=== PATIENT | male | born 1990 | race Caucasian/White ===

== ENCOUNTER 2016-08-29 08:46 | Emergency (ER) | payer BC ==
[2016-08-29] MEDS ORDERED: MOTRIN PO ONE (09:49)
--- NOTE | 2016-08-29 09:55 | Emergency Department Report ---
Entered by BLAZE ROBERTS, acting as scribe for RHIANNON ZAMBRANO NP. Chief Complaint: Urogenital-Male Stated Complaint: URINATING BLOOD/LIGHT HEADED Time Seen by Provider: 08/29/16 09:48 - HPI History of Present Illness: 26 y/o male, nontoxic, well developed, NAD, c/o abdominal pain beginning last night. Associated bloody urination, chills, diarrhea, and gradual onset throbbing CANTOR, non thunderclap. Denies, CP, SOB, blurry vision, n/v. - Exam Vital Signs: Vital Signs 08/29/16 09:24 Temperature 97.6 F Pulse Rate 50 L Respiratory 18 Rate Blood Pressure 139/102 O2 Sat by Pulse 100 Oximetry Physical Exam: GENERAL: The patient is a well-developed, well-nourished male in no apparent distress. Patient is alert and oriented x3. NEUROLOGIC: Cranial nerves II through XII are grossly intact. Alert and oriented x 3. Normal gait. Symmetrical strength and sensation. Reflexes 2+ throughout. Cerebellar testing normal. GCS score of 15. ABDOMEN: Soft, nontender, and nondistended. Positive bowel sounds. No hepatosplenomegaly was noted. No guarding or rebound tenderness, negative epigastric bruit. MSE screening note: Focused history and physical exam performed. Due to findings the following was ordered: CBC, UA, CMP. Patient received ibuprofen 600 mg in triage. ED Disposition for MSE Condition: Stable This documentation as recorded by the scribe,BLAZE ROBERTS,accurately reflects the service I personally performed and the decisions made by ,RHIANNON ZAMBRANO, PRO.
[2016-08-29 10:08] LABS: Basophils % (Auto) 0.5 % (0.0-1.8); Eosinophils % (Auto) 4.7 % (0.0-4.3); Hematocrit 46.1 % (35.5-45.6); Hemoglobin 15.5 gm/dl (11.8-15.2); Mean Corpuscular HGB Conc 34 % (32-34); Mean Corpuscular Hemoglobin 28 pg (28-32); Mean Corpuscular Volume 82 fl (84-94); Platelet Count 268 K/mm3 (140-440); Red Blood Count 5.63 M/mm3 (3.65-5.03); Red Cell Distribution Width 14.3 % (13.2-15.2); White Blood Count 6.9 K/mm3 (4.5-11.0)
[2016-08-29 10:27] LABS: Alanine Aminotransferase 16 units/L (7-56); Albumin 4.2 g/dL (3.9-5); Albumin/Globulin Ratio 1.4 %; Alkaline Phosphatase 58 units/L (35-129); Anion Gap 18 mmol/L; BUN/Creatinine Ratio 15.55; Blood Urea Nitrogen 14 mg/dL (9-20); Carbon Dioxide 24 mmol/L (22-30); Chloride 99.7 mmol/L (98-107); Glucose 104 mg/dL (75-100); Potassium 3.8 mmol/L (3.6-5.0); Sodium 138 mmol/L (137-145); Total Protein 7.3 g/dL (6.3-8.2)
[2016-08-29 14:54] LABS: Bacteria,Urine 1+ /HPF (Negative); Bilirubin,Urine NEG (Negative); Blood,Urine SM (Negative); Ketones,Urine TR mg/dL (Negative); Leukocyte Esterase,Urine TR (Negative); Mucus,Urine 3+ /HPF; Nitrite,Urine NEG (Negative)
[2016-08-29] MEDS ORDERED: ZOFRAN ODT PO ONE (18:40)
[2016-08-29] MEDS ORDERED: NORCO 5/325 PO ONE (18:40)
--- NOTE | 2016-08-29 19:42 | Cat Scan Report ---
FINAL REPORT PROCEDURE: CT ABDOMEN PELVIS WO CON TECHNIQUE: Computerized axial tomography of the abdomen and pelvis was performed without intravenous contrast. This study is performed without intravascular contrast material and its sensitivity for abdominal and pelvic pathology, including neoplasms, inflammation, abscess, free fluid, thrombosis, arterial dissection and infarction, is reduced compared with a contrast enhanced study. HISTORY: hematuria, renal colic 1st episode COMPARISON: No prior studies are available for comparison. FINDINGS: The liver and spleen appear normal. The gallbladder and pancreas display no abnormalities. The adrenal glands and abdominal aorta are normal in size. No renal abnormality is seen. Normal appendix is seen. Bladder appears normal. Prostate gland is normal in size. No free pelvic fluid is seen. Likely mild changes of jejunitis or enteritis are seen. IMPRESSION: No renal or ureteral abnormalities are seen. Likely changes of jejunitis or enteritis are seen.
--- NOTE | 2016-08-29 20:45 | Emergency Department Report ---
ED Back Pain/Injury HPI - General Chief Complaint: Urogenital-Male Stated Complaint: URINATING BLOOD/LIGHT HEADED Time Seen by Provider: 08/29/16 09:48 Source: patient Limitations: No Limitations - History of Present Illness Initial Comments: 26M PMH HTN p/w c/o several episodes of hematuria over the last week. pt states he was in ED at [place] yesterday, had labs done but eloped because he had to no one to attend to his children. Pt is AAOx3, appears slightly uncomfortable. States he had mild nausea yesterday but none now. Denies any fever or chills, + slightly increased urinary frequency. pt states that he passed a small clot in urine yesterday which pt states may have contained a small stone. pain radiating from b/l flanks down to groin. denies any testicular pain or swelling. Denies any trauma to back. C/o mild headache. MD Complaint: back pain Onset/Timin -: week(s) Similar Symptoms Previously: No Severity scale (0 -10): 6 Quality: sharp - Related Data Previous Rx's Medication Instructions Recorded Last Taken Type Starch 51%(Nf) [Anusol] 1 each GA BID PRN #20 supp.rect 02/11/13 Unknown Rx Acetaminophen/Codeine [Tylenol 1 tab PO Q6H PRN #10 tab 08/29/16 Unknown Rx /Codeine # 3 tab] Ciprofloxacin HCl [Ciprofloxacin 500 mg PO Q12H #14 tab 08/29/16 Unknown Rx TAB] Naproxen [Naprosyn TAB] 500 mg PO BID PRN #30 tablet 08/29/16 Unknown Rx Ondansetron [Zofran Odt] 4 mg PO Q8H PRN #10 tab.rapdis 08/29/16 Unknown Rx Allergies Allergy/AdvReac Type Severity Reaction Status Date / Time No Known Allergies Allergy Unverified 02/11/13 07:43 ED Review of Systems ROS: Stated complaint: URINATING BLOOD/LIGHT HEADED Other details as noted in HPI Constitutional: denies: chills, fever Eyes: denies: eye pain, eye discharge, vision change ENT: denies: ear pain, throat pain Respiratory: denies: cough, shortness of breath, wheezing Cardiovascular: denies: chest pain, palpitations Endocrine: no symptoms reported Gastrointestinal: denies: abdominal pain, nausea, diarrhea Genitourinary: dysuria, hematuria. denies: urgency Musculoskeletal: denies: back pain, joint swelling, arthralgia Skin: denies: rash, lesions Neurological: headache. denies: weakness, paresthesias Psychiatric: denies: anxiety, depression Hematological/Lymphatic: denies: easy bleeding, easy bruising ED Past Medical Hx - Past Medical History Previous Medical History?: Yes Additional medical history: hematuria - Surgical History Past Surgical History?: No - Social History Smoking Status: Current Every Day Smoker Substance Use Type: Alcohol, Marijuana, Prescribed - Medications Home Medications: Home Medications Medication Instructions Recorded Confirmed Last Taken Type Starch 51%(Nf) [Anusol] 1 each GA BID PRN #20 supp.rect 02/11/13 Unknown Rx Acetaminophen/Codeine [Tylenol 1 tab PO Q6H PRN #10 tab 08/29/16 Unknown Rx /Codeine # 3 tab] Ciprofloxacin HCl [Ciprofloxacin 500 mg PO Q12H #14 tab 08/29/16 Unknown Rx TAB] Naproxen [Naprosyn TAB] 500 mg PO BID PRN #30 tablet 08/29/16 Unknown Rx Ondansetron [Zofran Odt] 4 mg PO Q8H PRN #10 tab.rapdis 08/29/16 Unknown Rx ED Physical Exam - General Limitations: No Limitations General appearance: alert, in no apparent distress - Head Head exam: Present: atraumatic, normocephalic - Eye Eye exam: Present: normal appearance, PERRL, EOMI - ENT ENT exam: Present: mucous membranes moist - Neck Neck exam: Present: normal inspection - Respiratory Respiratory exam: Present: normal lung sounds bilaterally. Absent: respiratory distress - Cardiovascular Cardiovascular Exam: Present: regular rate, normal rhythm. Absent: systolic murmur, diastolic murmur, rubs, gallop - GI/Abdominal GI/Abdominal exam: Present: soft (no tednerness x4 quds, no tenderness mcburneys point, negative rovsgins sign), normal bowel sounds - Rectal Rectal exam: Present: deferred - Extremities Exam Extremities exam: Present: normal inspection - Back Exam Back exam: Present: normal inspection, full ROM, CVA tenderness (R) (mild left and right side cva pain), CVA tenderness (L) - Neurological Exam Neurological exam: Present: alert, oriented X3, CN II-XII intact, normal gait - Psychiatric Psychiatric exam: Present: normal affect, normal mood - Skin Skin exam: Present: warm, dry, intact, normal color. Absent: rash ED Course Vital Signs 08/29/16 08/29/16 09:24 21:26 Temperature 97.6 F 97.6 F Pulse Rate 50 L 58 L Respiratory 18 20 Rate Blood Pressure 139/102 Blood Pressure 109/64 [Left] O2 Sat by Pulse 100 98 Oximetry ED Medical Decision Making - Lab Data Result diagrams: 08/29/16 09:55 08/29/16 09:55 - Medical Decision Making A/P: Renal colic 1-CT shows no obstructing stone or stone and ureter patient likely recently passed a kidney stone 2-approximately when necessary, Tylenol No. 3 short course when necessary. patient has no complaints of headache or dizziness before discharge 3-patient follow up with primary care doctor 4-CT otherwise unremarkable 5- patient does have leukocytes in urine and did mention mild suprapubic discomfort armen treat empirically with ciprofloxacin 6- advised patient to remain well-hydrated to return to the ED for any fevers chills nausea vomiting Critical care attestation.: If time is entered above; I have spent that time in minutes in the direct care of this critically ill patient, excluding procedure time. ED Disposition Clinical Impression: Renal colic Disposition: DISCHARGED TO HOME OR SELFCARE Is pt being admited?: No Does the pt Need Aspirin: No Condition: Stable Instructions: Renal Colic (ED), Acute Hematuria (ED) Prescriptions: Acetaminophen/Codeine [Tylenol /Codeine # 3 tab] 1 tab PO Q6H PRN #10 tab PRN Reason: Pain , Severe (7-10) Ciprofloxacin HCl [Ciprofloxacin TAB] 500 mg PO Q12H #14 tab Naproxen [Naprosyn TAB] 500 mg PO BID PRN #30 tablet PRN Reason: Pain Ondansetron [Zofran Odt] 4 mg PO Q8H PRN #10 tab.rapdis PRN Reason: Nausea Referrals: [facility] [Provider Group] - 3-5 Days [facility] [Outside] - 3-5 Days DMITRIY COFFMAN MD [Staff Physician] - 3-5 Days Forms: Work/School Release Form(ED)
[2016-08-29 21:26] VITALS: BP 109/64
== END 2016-08-29 21:28 | disposition home or self-care (01) ==
LOC: ED 08:46
DX: N23 Unspecified renal colic (principal); F17.200 Nicotine dependence, unspecified, uncomplicated; F12.10 Cannabis abuse, uncomplicated
CPT/HCPCS: 36415; 74176; 80053; 81001; 85025; Q0162

== ENCOUNTER 2017-02-28 11:47 | Day surgery (SDC) | payer OTHER ==
--- NOTE | 2017-02-28 12:06 | Anesthesia Day of Surgery ---
Anesthesia Day of Surgery - Day of Surgery Patient Examined: Yes Patient H&P Reviewed: Yes Patient is NPO: Yes
--- NOTE | 2017-02-28 12:06 | Anesthesia Consultation ---
Anesthesia Consult and Med Hx Date of service: 02/28/17 - Airway Anesthetic Teeth Evaluation: Good ROM Head & Neck: Adequate Mental/Hyoid Distance: Adequate Mallampati Class: Class II Intubation Access Assessment: Probably Good - Pulmonary Exam CTA: Yes - Cardiac Exam Cardiac Exam: RRR - Pre-Operative Health Status ASA Pre-Surgery Classification: ASA2 Proposed Anesthetic Plan: General - Pre-Anesthesia Comment Pre-Anesthesia Comments: one rear tooth broken - Pulmonary Hx Smoking: Yes (1/2 p/day x 6 years) Hx Sleep Apnea: No (snoring) - Other Systems Hx Obesity: Yes
[2017-02-28] MEDS ORDERED: PERCOCET 5/325 PO PRN (12:07)
[2017-02-28] MEDS ORDERED: ZOFRAN IV PRN (12:07)
[2017-02-28] MEDS ORDERED: VERSED IV NR (13:00)
[2017-02-28] MEDS ORDERED: LACTATED RINGERS 1,000 ML IV SCH (13:00)
[2017-02-28] MEDS ORDERED: PEPCID PO NR (13:00)
[2017-02-28] MEDS ORDERED: DIPRIVAN 10 MG/ML IV ONE (13:11)
[2017-02-28] MEDS ORDERED: XYLOCAINE MPF 2% ONE (13:11)
[2017-02-28] MEDS ORDERED: ZOFRAN ONE (13:26)
[2017-02-28] MEDS ORDERED: SUBLIMAZE ONE (13:26)
[2017-02-28] MEDS ORDERED: DECADRON ONE (13:26)
[2017-02-28] MEDS ORDERED: ANCEF/STERILE WATER 2 GM/20 ML IV NR (13:30)
[2017-02-28] MEDS ORDERED: MARCAINE 0.5% INFILTRATI ONE (14:00)
--- NOTE | 2017-02-28 14:14 | Procedure Note ---
Date of procedure: 02/28/17 Pre-op diagnosis: multiple fractures right foot status post insertion of intramedullary rods Post-op diagnosis: same Procedure: Removal of intramedullary rods right second third and fourth metatarsals The patient was brought to the OR and placed on table in supine position induction with mask anesthesia the patient's right lower extremity was prepped and draped in the usual sterile manner. A time out procedure was done to identify the patient and the correct operative site. Using C-arm fluoroscopy the intramedullary rods for the third and fourth metatarsals were identified a stab wound was made over the pin site and the intramedullary nails were retrieved without difficulty. The intramedullary luisito for the second metatarsal was also removed without complications. Post op dressing applied and he tolerated the procedure. Taken to PACU in stable condition. Anesthesia: MAC Surgeon: YIN TATE Estimated blood loss: minimal Pathology: none Specimen disposition: discarded Condition: stable Disposition: PACU
[2017-02-28] MEDS: DILAUDID IV PRN ×2 (14:30→14:40)
--- NOTE | 2017-02-28 15:02 | Post Anesthesia Evaluation ---
- Post Anesthesia Evaluation Patient Participated: Yes Airway Patent: Yes Stable Respiratory Function: Yes Temp > 96.8F: Yes Pain Manageable: Yes Adequeate Hydration: Yes Anesthesia Complications: No
--- NOTE | 2017-02-28 15:40 | XRay Report ---
FLUOROSCOPIC X-RAY RIGHT FOOT 2 VIEWS: 02/28/17 CLINICAL: Fracture. COMPARISON: 01/03/17 FINDINGS: A licensed life and health agent view demonstrated is an instrument marking the base of the fourth metatarsal. K wires in the third and fifth metatarsals. A mildly displaced fracture of the distal second metatarsal with no callus. A K wire has been removed from the second tarsal. A fixation plate and screws are unchanged in the proximal phalanx of the second toe. A subsequent image shows removal of all K wires. For more detail, please refer to the operative report.
[2017-02-28 16:29] VITALS: BP 113/65
== END 2017-02-28 16:36 | disposition home or self-care (01) ==
LOC: OR 11:47
PROVIDERS: ATTEND Orthopaedic Surgery
DX: T84.84XA Pain due to internal orthopedic prosthetic devices, implants and grafts, initial encounter (principal); Y83.9 Surgical procedure, unspecified as the cause of abnormal reaction of the patient, or of later complication, without mention of misadventure at the time of the procedure; Y92.89 Other specified places as the place of occurrence of the external cause; F17.210 Nicotine dependence, cigarettes, uncomplicated
CPT/HCPCS: 20680; 73620; J0690; J1100; J1170; J2250; J2405; J2704; J3010; J7120